=== PATIENT | female | born 1950 | race Caucasian/White ===

== ENCOUNTER → 2020-01-22 | Outpatient (CLI) | payer MEDICARE ==
[2020-01-22 14:27] LABS: Stool Occult Bld Immuno 1 Negative (NEGATIVE)
== END | disposition home or self-care (01) ==
LOC: LAB 08:28 → LAB SHORT 08:28 → LAB FUT 10-24 07:30
PROVIDERS: Internal Medicine
DX: Z12.11 Encounter for screening for malignant neoplasm of colon (principal); E78.5 Hyperlipidemia, unspecified
CPT/HCPCS: 82274

== ENCOUNTER 2023-03-28 10:25 | Day surgery (SDC) | payer MEDICARE ==
[~2023-03-28] VITALS: Ht 152.4 cm; Wt 63.0 kg
[~2023-03-28 10:25] MED LIST: AMLO5; CEPH500 PO; COLESTID1 G1; PHENA200 PO; PROM25 PO
[2023-03-28] MEDS ORDERED: OMEP20ER PO (10:39)
[2023-03-28] MEDS ORDERED: BUSP5 PO (10:40)
[2023-03-28] MEDS ORDERED: MONT10T PO (10:40)
--- NOTE | 2023-03-28 10:45 | NUR ---
03/28/23 1045 Choco Mathews CALL LIGHT WITHIN REACH. TETRACAINE IN RIGHT EYE AT 1043 AND PLEDGETT IN AT 1044
[2023-03-28 12:45] VITALS: BP 142/69
--- NOTE | 2023-03-28 12:45 | NUR ---
03/28/23 1245 Elaine Perera 1220 IV REMOVED, CANNULA INTACT PT DENIES PAIN AND NAUSEA. ARPIT REMOVAL WELL.
== END 2023-03-28 12:36 | disposition home or self-care (01) ==
LOC: ORSCSDS 10:25
PROVIDERS: Student in an Organized Health Care Education/Training Program
PROC: 08DJ3ZZ Extraction of Right Lens, Percutaneous Approach (ICD-10-PCS; principal; 2023-03-28 11:45)
DX: H25.13 Age-related nuclear cataract, bilateral (principal); H52.201 Unspecified astigmatism, right eye; I10 Essential (primary) hypertension; F32.A Depression, unspecified; Z79.899 Other long term (current) drug therapy
CPT/HCPCS: J2250; J7040; V2632

== ENCOUNTER 2023-04-11 06:24 | Day surgery (SDC) | payer MEDICARE ==
[~2023-04-11] VITALS: Ht 152.4 cm; Wt 62.8 kg
[~2023-04-11 06:24] MED LIST changes: +BUSP5 PO; +MONT10T PO; +OMEP20ER PO
[2023-04-11 07:52] VITALS: BP 150/74
== END 2023-04-11 08:20 | disposition home or self-care (01) ==
LOC: ORSCSDS 06:24
PROVIDERS: Student in an Organized Health Care Education/Training Program
PROC: 08RK3JZ Replacement of Left Lens with Synthetic Substitute, Percutaneous Approach (ICD-10-PCS; principal; 2023-04-11 07:30)
DX: H25.12 Age-related nuclear cataract, left eye (principal); Z96.1 Presence of intraocular lens; I10 Essential (primary) hypertension; K21.9 Gastro-esophageal reflux disease without esophagitis; Z79.899 Other long term (current) drug therapy
CPT/HCPCS: J2001; J2250; J3010; J7040; V2632

== ENCOUNTER 2024-03-21 08:11 | Day surgery (SDC) | payer MEDICARE ==
[~2024-03-21] VITALS: Ht 152.4 cm; Wt 63.4 kg
[~2024-03-21 08:11] MED LIST changes: +Lactated Ringer's 1,000 ML IV ONE
[2024-03-21] MEDS ORDERED: Lactated Ringer's 1,000 ML IV ONE (08:43)
--- NOTE | 2024-03-21 08:49 | NUR ---
03/21/24 0849 Joanne Mckay TIME OUT PERFORMED AT BEDSIDE WITH DR DUKE 0846 PRIOR TO LOCAL INJECTION. 10ML MIXTURE OF 9ML 1% LIDOCAINE WITH EPI [id number] AND 1ML 8.4% SODIUM BICARBONATE INJECTED AT 0847. PT TOLERATED PROCEDURE WELL.
[2024-03-21] MEDS ORDERED: Midazolam HCl 1MG / ML 2ML Vial ONE (09:08)
--- NOTE | 2024-03-21 10:35 | NUR ---
03/21/24 Sandra4 Nish Camargo PT INITIALLY MAINTAINED O2 93-95% ON RA WITH BREIF DROPS LOW 89% . PT WAS ABLE TO RETURN O2 QUICKLY TO >93% WITH DEEP BREATHS. PT STATED SHE FELT DROWSY AT THAT TIME AND WAS PLACED ON 4L O2 VIA NC. PT TITRATED BACK TO RA BY 0942. PT DENIED DIZZINESS, SOB, AND OTHER RESPIRATORY SYMPTOMS THROUGHOUT SDU STAY. [facility] AND PULSE OXYMETERY WAS SWITCHED FROM R HAND TO L HAND. PT MAINTAINED O2 >94% AFTER THIS TIME. PT ADVISED TO MONITOR B/P AT HOME AND FOLLOW UP WITH PCP IF NEEDED.
[2024-03-21 10:40] VITALS: BP 141/73
== END 2024-03-21 10:26 | disposition home or self-care (01) ==
LOC: ORSCSDS 08:11
PROVIDERS: Orthopaedic Surgery
PROC: 0LN70ZZ Release Right Hand Tendon, Open Approach (ICD-10-PCS; principal; 2024-03-21 09:45)
PROC: 01N54ZZ Release Median Nerve, Percutaneous Endoscopic Approach (ICD-10-PCS; principal; 2024-03-21 09:45)
DX: G56.01 Carpal tunnel syndrome, right upper limb (principal); M65.331 Trigger finger, right middle finger; I10 Essential (primary) hypertension; J44.9 Chronic obstructive pulmonary disease, unspecified; K21.9 Gastro-esophageal reflux disease without esophagitis; Z79.899 Other long term (current) drug therapy
CPT/HCPCS: J2250; J7120

== ENCOUNTER → 2025-02-27 | Outpatient (CLI) | payer MEDICARE ==
[~2025-02-27] MED LIST changes: -Lactated Ringer's 1,000 ML IV ONE
[2025-02-27 18:56] LABS: Bacterial Vaginosis PCR Negative (NEGATIVE); Candida Group, PCR NOT DETECTED (NOT DETECT)
[2025-02-27 19:17] LABS: Candida glabrata-krusei, PCR DETECTED (NOT DETECT)
== END ==
LOC: LAB 16:34 → LAB SHORT 16:34
PROVIDERS: Student in an Organized Health Care Education/Training Program
DX: N89.8 Other specified noninflammatory disorders of vagina (principal); R30.0 Dysuria; R35.0 Frequency of micturition
CPT/HCPCS: 81515; 87086